=== PATIENT | female | born 1965 | race Caucasian/White ===

== ENCOUNTER 2018-11-13 13:10 | Emergency (ER) | payer OTHER ==
[~2018-11-13] VITALS: Ht 162.6 cm; Wt 104.3 kg
[2018-11-13 14:15] LABS: HEMATOCRIT 42.2 % (37.0-47.0); MCH 28.8 pg (26.0-34.0); MCHC 33.2 g/dL (28.0-37.0); MCV 86.7 fL (80.0-100.0); PLATELET COUNT 151 thou/uL (150-400); RBC 4.87 mil/uL (4.20-5.00); RDW 14.1 % (10.5-14.5); WBC 2.8 thou/uL (4.0-11.0)
[2018-11-13 14:17] LABS: CALCIUM 8.7 mg/dL (8.5-10.1); CREATININE 0.8 mg/dL (0.6-1.0)
[2018-11-13 14:19] LABS: URINE BILIRUBIN NEGATIVE (Negative); URINE BLOOD 2+ (Negative); URINE CLARITY CLEAR; URINE COLOR YELLOW; URINE GLUCOSE-RANDOM* NEGATIVE (Negative); URINE KETONES NEGATIVE (Negative); URINE LEUKOCYTES-REFLEX NEGATIVE (Negative); URINE NITRITE-REFLEX NEGATIVE (Negative); URINE PROTEIN (DIPSTICK) 1+ (Negative)
[2018-11-13 14:28] LABS: CASTS None Seen /LPF (None Seen); CRYSTALS None Seen /LPF (None Seen); SQUAMOUS 4-10 Moderate /LPF (0-3)
[2018-11-13 14:29] LABS: BACTERIA-REFLEX 1-9 Few /HPF (None Seen); URINE RBC 0-2 Rare /HPF (0-2); URINE WBC-REFLEX None Seen /HPF (0-5)
[2018-11-13 14:41] LABS: ABSOLUTE NEUTROPHILS 1.9 thou/uL (1.4-8.2); ANISOCYTOSIS 1+; ATYPICAL LYMPHS 1 %; LARGE PLATELETS OCCASIONAL; METAMYELOCYTES 1 %
[2018-11-13] MEDS ORDERED: AUGMENTIN 875-1 EACH PO (17:37)
[2018-11-13] MEDS ORDERED: ZOFRAN4 MG PO (17:37)
[2018-11-13] MEDS ORDERED: IBUPROFEN 600600 M1 PO (17:37)
[2018-11-13] MEDS ORDERED: ULTRAM50 MG PO (17:37)
[2018-11-13] MEDS ORDERED: TYLENOL325 MG PO (17:37)
[2018-11-13 18:00] VITALS: BP 113/70
== END 2018-11-13 17:50 | disposition home or self-care (01) ==
LOC: ER 13:10
PROVIDERS: Emergency Medicine; Physician Assistant
DX: J18.9 Pneumonia, unspecified organism (principal); R42 Dizziness and giddiness; R11.2 Nausea with vomiting, unspecified

== ENCOUNTER 2018-11-18 12:22 | Emergency (ER) | payer OTHER ==
[~2018-11-18] VITALS: Ht 162.6 cm; Wt 104.3 kg
[~2018-11-18 12:22] MED LIST: AUGMENTIN 875-1 EACH PO; IBUPROFEN 600600 M1 PO; TYLENOL325 MG PO; ULTRAM50 MG PO; ZOFRAN4 MG PO
[2018-11-18 13:58] LABS: HEMATOCRIT 39.8 % (37.0-47.0); HEMOGLOBIN 13.2 gm/dL (12.0-15.0); MCH 28.8 pg (26.0-34.0); MCHC 33.3 g/dL (28.0-37.0); MCV 86.6 fL (80.0-100.0); PLATELET COUNT 246 thou/uL (150-400); RDW 13.9 % (10.5-14.5); WBC 7.9 thou/uL (4.0-11.0)
[2018-11-18 14:02] LABS: ANION GAP 7 mmol/L (7-16); BUN 8 mg/dL (7-18); CHLORIDE 104 mmol/L (98-107); CO2 29 mmol/L (21-32); CREATININE 0.7 mg/dL (0.6-1.0); GLUCOSE 97 mg/dL (74-106); SODIUM 140 mmol/L (136-145)
[2018-11-18 14:10] LABS: TROPONIN-I <0.06 ng/mL (<0.06)
[2018-11-18 14:40] LABS: ABSOLUTE NEUTROPHILS 3.7 thou/uL (1.4-8.2); ANISOCYTOSIS 1+; ATYPICAL LYMPHS 3 %
[2018-11-18 14:41] LABS: POLYCHROMASIA OCCASIONAL
[2018-11-18] MEDS ORDERED: NAPROSYN500 MG PO (15:00)
[2018-11-18] MEDS ORDERED: TRAMADOL 50 MG50 MG PO (15:00)
--- NOTE | 2018-11-18 15:29 | EKG ---
[address] [place] [address] ELECTROCARDIOGRAM REPORT Name: RUBEN KEATING Room #: [facility]ITAL[facility] [id number] ������������������ Admission: 11/18/18 ������������������ Attend Phys: Discharge: ������������������ Date of : 67 Report #: [id number] ����������������������������������������������������������������� [id number] THIS REPORT FOR: //name// [facility] ED Test Date: 2018-11-18 Test Time: 12:24:07 Pat Name: RUBEN KEATING Department: Room: Gender: F [employer] Operator: : 1965 Requested By: Kahlil Holcomb Order Number: [id number] MD: Memo Niño Measurements Intervals [place] Rate: 64 P: 38 NV: 181 QRS: 23 QRSD: 97 T: 52 QT: 411 QTc: 424 Interpretive Statements Sinus rhythm ST elev, probable normal early repol pattern No previous ECG available for comparison Electronically Signed On 11-18-2018 15:29:24 CDT by Memo Niño [email or web address] ��������������������������������������������� <ELECTRONICALLY SIGNED> ���������������������������������������� By: Memo Niño MD, [facility] ��������������������������������������������� 11/18/18 1529 1224 1224 Memo Niño MD, FACC /EPI
[2018-11-18 16:39] VITALS: BP 106/55
== END 2018-11-18 16:57 | disposition home or self-care (01) ==
LOC: ER 12:22
PROVIDERS: Emergency Medicine
DX: R09.1 Pleurisy (principal); R07.89 Other chest pain